=== PATIENT | female | born 1965 | race Caucasian/White ===

== ENCOUNTER 2016-12-09 15:20 | Emergency (ER) | payer OTHER ==
[~2016-12-09] VITALS: Ht 170.2 cm; Wt 87.7 kg
[2016-12-09 15:27] VITALS: BP 158/101; PULSE 135; RESP 16; O2SAT 97
[2016-12-09] MEDS ORDERED: LORazepam 2 mg Tablet PO ONE ×3 (15:40→21:50)
--- NOTE | 2016-12-09 16:54 | ED.REPORT ---
HPI-Psychiatric Illness Date of Service Dec 09, 2016 ED Provider: Piter Huynh PA-C Sofiya is a 51-year-old woman with a history of hypertension who presents with chief complaint of alcohol withdrawal. She reports approximate 4 month history of drinking one bottle of tequila per day. Her last drink was approximately 16 hours ago. Prior to 4 months ago she reports drinking a few drinks tonight for many years which ultimately elevated to her current level. She endorses symptoms of tremulousness nausea, dry heaving, feeling hot, anxiety, tachycardia. She denies a history of delirium tremens, seizure, hallucination. She has not attempted alcohol detoxication before. Denies sweats, abdominal pain, diarrhea, chest pain, difficulty breathing. Denies suicidal ideation, homicidal ideation, auditory hallucinations, visual hallucinations. Nursing Notes Stated Complaint: WITHDRAWLS Chief Complaint: Psychiatric Complaint Nursing Notes Reviewed: Yes Allergies: Coded Allergies: Penicillins (Verified Allergy, Mild, HIVES, 12/09/16) General Time Seen by MD: 15:39 Chief Complaint Other (alcohol detox) Risk-Psychiatric Illness Suicide Risk Stratification RF Statements: Risk factors reviewed Past Medical History Past Medical History Notes: Hypertension Past Surgical History Gastric bypass surgery Review of Systems General: Denies fever, chills, malaise. HEENT: Denies congestion, headache, sore throat. Respiratory: Denies dyspnea, cough, shortness of breath, wheezing. Cardiovascular: Denies chest pain, palpitations. Gastrointestinal: Admits vomiting, denies diarrhea, abdominal pain Genitourinary: Denies frequency, urgency, dysuria, hematuria. Otherwise as noted in HPI. Physical Exam General: Well appearing, well developed, well nourished, no acute distress. Head: Atraumatic, normocephalic. No mastoid tenderness. Eyes: No scleral icterus or injection. No discharge. PERRL. Vision grossly intact. Ears: Pinna and tragus nontender with manipulation. External auditory canal patent, atraumatic and without discharge. Tympanic membrane oneill, shiny and translucent without fluid, bulging, retraction or perforation. Hearing grossly intact. Nose: Symmetrical, nares patent without discharge. No frontal or maxillary sinus tenderness. Mouth/pharynx: normal dentition, mucus membranes moist. Tonsils 2+ and symmetrical, uvula midline. Pharynx noninjected, no cobblestoning or discharge. Voice clear. Neck: No tenderness or lymphadenopathy. Trachea midline. Respiratory: Regular rate and rhythm. Breath sounds present, clear to auscultation and equal bilaterally. No respiratory distress. No increased work of breathing, speaks in complete sentences. Cardiovascular: Tachycardic at 124 and regular rhythm, without murmur, gallop or rub. No pedal edema. Gastrointestinal: Abdomen flat and non-tender without guarding or rebound. Bowel sounds normoactive. Skin: Warm and dry. Neurological: Tremor noted with hands extended. Psychological: Alert and oriented. Speech appropriate, linear and logical. Mildly anxious. Initial CIWA score of 14 at 1630 Initial Vital Signs Initial VS: Reviewed, Vital signs abnormal (tachycardia and elevated blood pressure) Interpretation & Diagnostics Interpretation & Diagnostics: CIWA score at 1630 is 14, following 2 mg lorazepam. Lab Results Interpretation Test 12/09/16 16:11 Hold Purple Top Tube Received (Received) Hold Blue Top Tube Received (Received) Hold [place] Top Tube Received (Received) Hold [place] Top Tube Received (Received) Alcohol, Quantitative < 10mg/dL (0-10) Re-Eval/Medical Decision Med Decision/Clinical Course 51-year-old female presents to be evaluated for alcohol detoxification. She reports drinking 1 L of hard alcohol every night for 4 months. She reports her last drink was 6 hours ago. her CIWA scores range from 14-18. At this point her blood alcohol level is 0. I do not see an indication for hospital inpatient detox. She discussed the situation with WILLIE Sellers. She has private insurance and a number of options for inpatient detox. He provided her with the number to call at [facility] tomorrow morning. I will discharge her with a dose of Ativan to mitigate her withdrawal symptoms overnight. She has support of family member and denies suicidal ideation. She is clinically sober. Patient family understand and are comfortable with the plan. Discharge & Departure Impression: Primary Impression: Alcohol abuse )( Condition at Discharge: No danger to self, No danger to others, No suicidal ideation, No homicidal ideation, Clear for alcohol rehab Disposition: Home Discharge Condition All VS Reviewed: Yes Condition: Stable Patient Instructions: Alcohol Withdrawal (ED) Additional Instructions: Evaluation for alcohol detox in the emergency department. History and physical reveals no medical instability. You deny suicidal ideation. You are medically cleared for inpatient alcohol detoxification treatment. Please contact [facility] at the number provided by [facility] in the morning to make arrangements. I will send you home with a small amount of Ativan to mitigate withdrawal symptoms until you can check into your program tomorrow. You should be proud of taking this step. We wish you the best of luck. Return to emergency department for new or worsening symptoms including difficulty breathing, chest pain, seizures or hallucinations. Referrals: [facility] Provider for APC: Travis Figueroa MD, Seth PA-C Dec 09, 2016 16:54 Piter Huynh PA-C Dec 09, 2016 16:54
[2016-12-09 18:22] VITALS: BP 146/100; PULSE 105; O2SAT 96
[2016-12-09] MEDS ORDERED: _LORazepam 1 mg Tablet PO ONE (21:50)
[2016-12-09 21:52] VITALS: BP 152/95; PULSE 99; RESP 16; O2SAT 94
== END 2016-12-09 22:38 | disposition home or self-care (01) ==
LOC: SED 15:20
DX: F10.10 Alcohol abuse, uncomplicated (principal); F41.9 Anxiety disorder, unspecified; R11.0 Nausea; R00.0 Tachycardia, unspecified; I10 Essential (primary) hypertension; Z88.0 Allergy status to penicillin
CPT/HCPCS: 36415; 81002; 99284; G0480